=== PATIENT | female | born 1995 | race American Indian/Alaskan Native ===

== ENCOUNTER 2018-02-06 10:44 | Emergency (ER) | payer OTHER ==
--- NOTE | 2018-02-06 12:04 | Emergency Department Report ---
ED General Adult HPI - General Chief complaint: Chest Pain Stated complaint: CHEST PAIN Time Seen by Provider: 02/06/18 11:50 Source: patient Mode of arrival: Ambulatory Limitations: No Limitations - History of Present Illness Initial comments: This is a 22-year-old female here report that she is having left chest pain for 2 days. She denies any cough or radiation. Denies any history of blood clots in her lungs or in her legs. Denies being on control or any recent travel from 1-3 hours. Denies any recent surgery or any history of cancer. She said the pain is sharp and it is 8 out of 10. She says it is worse when she touches it. He reports pain when she takes a deep breath.. Denies any trauma to her chest wall. Denies any change in color to her chest wall. No medication taken for pain. Worse with touch and better at rest. Patient denies any medical problems. Denies any swelling to her legs. Denies any cough , runny nose or nasal congestion. MD Complaint: left chest pain Onset/Timin -: days(s) Location: chest Radiation: non-radiation Severity scale (0 -10): 8 Quality: sharp Improves with: rest Worsens with: other (outpatient) Associated Symptoms: chest pain. denies: confusion, cough, diaphoresis, fever/ chills, headaches, loss of appetite, malaise, nausea/vomiting, rash, seizure, shortness of breath, syncope, weakness Treatments Prior to Arrival: none - Related Data Previous Rx's Medication Instructions Recorded Last Taken Type Ibuprofen [Motrin] 600 mg PO Q8H PRN #12 tablet 02/06/18 Unknown Rx predniSONE [Deltasone] 50 mg PO QAM 3 Days #3 tab 02/06/18 Unknown Rx Allergies Allergy/AdvReac Type Severity Reaction Status Date / Time No Known Allergies Allergy Unverified 02/06/18 10:55 ED Review of Systems ROS: Stated complaint: CHEST PAIN Other details as noted in HPI Constitutional: denies: chills, fever Eyes: denies: eye pain, eye discharge, vision change ENT: denies: ear pain, throat pain, congestion Respiratory: denies: cough, shortness of breath, SOB with exertion, SOB at rest , stridor, wheezing Cardiovascular: chest pain. denies: palpitations, dyspnea on exertion, edema, syncope, paroxysmal nocturnal dyspnea Gastrointestinal: denies: abdominal pain, nausea, vomiting, diarrhea, hematemesis, hematochezia Genitourinary: denies: urgency, dysuria, discharge Musculoskeletal: denies: back pain, joint swelling, arthralgia, myalgia Skin: denies: rash, lesions Neurological: denies: headache, weakness ED Past Medical Hx - Past Medical History Previous Medical History?: No - Surgical History Past Surgical History?: No - Family History Family history: hypertension - Social History Smoking Status: Never Smoker Substance Use Type: None - Medications Home Medications: Home Medications Medication Instructions Recorded Confirmed Last Taken Type Ibuprofen [Motrin] 600 mg PO Q8H PRN #12 tablet 02/06/18 Unknown Rx predniSONE [Deltasone] 50 mg PO QAM 3 Days #3 tab 02/06/18 Unknown Rx ED Physical Exam - General Limitations: No Limitations General appearance: alert, in no apparent distress - Head Head exam: Present: atraumatic, normocephalic, normal inspection - Eye Eye exam: Present: normal appearance, PERRL, EOMI Pupils: Present: normal accommodation - ENT ENT exam: Present: normal exam, normal orophraynx, mucous membranes moist, TM's normal bilaterally, normal external ear exam - Neck Neck exam: Present: normal inspection, full ROM. Absent: tenderness, lymphadenopathy - Respiratory Respiratory exam: Present: normal lung sounds bilaterally, chest wall tenderness (left chest wall tenderness). Absent: respiratory distress, wheezes , rales, rhonchi, stridor, accessory muscle use, decreased breath sounds, prolonged expiratory - Cardiovascular Cardiovascular Exam: Present: regular rate, normal rhythm, normal heart sounds. Absent: systolic murmur, diastolic murmur - GI/Abdominal GI/Abdominal exam: Present: soft, normal bowel sounds. Absent: distended, tenderness, guarding, rebound, rigid - Extremities Exam Extremities exam: Present: normal inspection, full ROM, normal capillary refill , other (No cce. + 2 pulses in all extremities, no neurovascular compromise). Absent: tenderness, pedal edema, joint swelling, calf tenderness - Back Exam Back exam: Present: normal inspection, full ROM, other (ambulates without any difficulties). Absent: tenderness, CVA tenderness (R), CVA tenderness (L), muscle spasm, paraspinal tenderness, vertebral tenderness, rash noted - Neurological Exam Neurological exam: Present: alert, oriented X3, normal gait, reflexes normal. Absent: motor sensory deficit - Psychiatric Psychiatric exam: Present: normal affect, normal mood - Skin Skin exam: Present: warm, dry, intact, normal color. Absent: rash ED Course Vital Signs 02/06/18 02/06/18 02/06/18 10:55 12:30 12:53 Temperature 98.5 F Pulse Rate 68 Respiratory 20 18 18 Rate Blood Pressure 112/51 O2 Sat by Pulse 99 Oximetry - Reevaluation(s) Reevaluation #1: Patient is seen Motrin 800 mg emergency room which relieved her pain. ED Medical Decision Making - EKG Data -: EKG Interpreted by Me (attending physician) EKG shows normal: sinus rhythm Rate: normal (66 beats per minutes) - EKG Data Interpretation: no acute changes, normal EKG - Radiology Data Radiology results: report reviewed Chest x-ray dictated per radiologist report reviewed by myself. Please see report below. Patient: CLARI JAIMES MR#: [id number] : 1995 Acct:[id number] Age/Sex: 22 / F ADM Date: 02/06/18 Loc: ED Attending Dr: Ordering Physician: MARLIN ESPINOZA Date of Service: 02/06/18 Procedure(s): XR chest routine 2V Accession Number(s): [id number] cc: MARLIN ESPINOZA Fluoro Time In Minutes: ROUTINE CHEST, TWO VIEWS: HISTORY: Short of breath. The trachea, heart, mediastinal contour, lung stovall and bony thorax are unremarkable. IMPRESSION: Unremarkable chest x-ray. Transcribed By: TTR Dictated By: JOSE DANIEL CAMERON JR, MD Electronically Authenticated By: JOSE DANIEL CAMERON JR, MD Signed Date/Time: 02/06/18 1257 DD/ 1257 TD/TT: 02/06/18 1257 - Medical Decision Making This is a 22-year-old female here reports that she is having left chest wall pain that started 2 days . Patient does not have any medical problems. Diagnostics: Chest x-ray 2 views dictated by radiologist's report reviewed by myself and with normal findings. Labs: D-dimer within normal limits Assessment/plan 1: Costochondritis-icing it and Motrin 800 mg emergency room which he will either pain. She will discharged home on Motrin and 3 days' worth of steroids. IDiscussed with patient her diagnosis and laboratory results she was understanding. I also discussed treatment plan and she is to follow-up with her primary care physician in 2 days and if she does not have a primary care physician and she is to follow-up with [facility]. I discussed with her that if her symptoms return and if she is having shortness of breath to return to emergency room [facility]. 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 Patient discharged home in stable condition with prescription for Motrin and prednisone. Vital signs stable she is afebrile and pain control. Critical care attestation.: If time is entered above; I have spent that time in minutes in the direct care of this critically ill patient, excluding procedure time. ED Disposition Clinical Impression: Costochondritis, Atypical chest pain Disposition: DC- TO HOME OR SELFCARE Is pt being admited?: No Does the pt Need Aspirin: No Condition: Stable Instructions: Chest Pain (ED), Costochondritis (ED) Additional Instructions: Please follow-up with your primary care physician as instructed and if he do not have one follow-up at [facility] in 2 days See discharge instruction for referral to cardiology for further workup regarding chest pain. Take Motrin and prednisone as these are anti- inflammatory and will help to reduce chest wall inflammation Increase her fluid intake If you are chest pain returns, develop shortness of breath, please return to emergency room [facility]. Referrals: CATALINA GONZALEZ MD [Primary Care Provider] - 02/08/18 [facility] [Outside] - 02/08/18 JOSE POLANCO MD [Staff Physician] - 02/08/18 Forms: Work/School Release Form(ED)
[2018-02-06] MEDS ORDERED: MOTRIN PO ONE (12:06)
--- NOTE | 2018-02-06 12:58 | XRay Report ---
ROUTINE CHEST, TWO VIEWS: HISTORY: Short of breath. The trachea, heart, mediastinal contour, lung stovall and bony thorax are unremarkable. IMPRESSION: Unremarkable chest x-ray.
[2018-02-06 15:04] VITALS: BP 148/73
== END 2018-02-06 15:04 | disposition home or self-care (01) ==
LOC: ED 10:44
DX: M94.0 Chondrocostal junction syndrome [Tietze] (principal)
CPT/HCPCS: 36415; 71046; 85379; 93005; 93010